=== PATIENT | female | born 1935 | race Asian ===

== ENCOUNTER 2018-11-21 21:40 | Observation (INO) | payer MEDICARE, OTHER ==
[~2018-11-21] VITALS: Ht 167.6 cm; Wt 55.7 kg
[~2018-11-21 21:40] MED LIST: AMLO-218 PO; BENZ-6 PO; CIPR500T4 PO; LISI-471 PO; [UNRECOGNIZED DRUG - CODE] PO
--- NOTE | 2018-11-21 22:07 | ERD ---
ER Documentation Chief Complaint Chief Complaint HPI 83-year-old woman brought in by his son for complaints of chest pain and shortne ss of breath shortly after eating dinner this evening. He states she felt dizzy and lightheaded but had no loss of consciousness and symptoms lasted for about 15 to 20 minutes. She has had no fevers or chills, no headache or blurry vision, no vomiting or diarrhea. Chest pain was substernal, nonradiating and nonexertional ROS All systems reviewed and are negative except as per history of present illness. Medications Home Meds Active Scripts Benzonatate* (Tessalon Perle*) 100 Mg Capsule, 200 MG PO TID PRN for COUGH, #30 CAP Prov:YOVANY NEWMAN [employer] DES[employer] 05/24/14 Ciprofloxacin Hcl* (Ciprofloxacin Hcl*) 500 Mg Tablet, 500 MG PO BID, #10 TAB Prov:YOVANY NEWMAN [employer] DES[employer] 05/24/14 Reported Medications Amlodipine Besylate* (Norvasc*) 10 Mg Tablet, 10 MG PO DAILY, TAB 05/22/14 Tenofovir Disoproxil Fumarate (Viread) 300 Mg Tablet, 300 MG PO DAILY, TAB 05/22/14 Lisinopril* (Lisinopril*) 20 Mg Tablet, 20 MG PO BID, TAB 05/22/14 Allergies Allergies: Coded Allergies: aspirin (Verified Allergy, Unknown, RASH,REDNESS,ITCHINESS, 11/16/12) Uncoded Allergies: seafood (Allergy, Unknown, 05/22/14) PMhx/Soc Hypertension, thrombocytopenia, hepatitis C, pulmonary hypertension, sick sinus syndrome status post pacemaker placement History of Surgery: Yes (hysterectomy, pacemaker placement, cholecystectomy, cataract sx) Anesthesia Reaction: No Hx Neurological Disorder: No Hx Respiratory Disorders: No Hx Cardiac Disorders: Yes (HTN) Hx Psychiatric Problems: No Hx Miscellaneous Medical Probl: Yes (liver cirrhosis) Hx Alcohol Use: No Hx Substance Use: No Hx Tobacco Use: No FmHx Family History: No diabetes Physical Exam Vitals Vital Signs Date Temp Pulse Resp B/P (MAP) Pulse Ox O2 O2 Flow FiO2 Time Delivery Rate 11/21/18 97.0 62 17 134/79 100 21:45 (97) Physical Exam Const: Elderly, chronically debilitated woman, appears dehydrated and afebrile Resp: Clear to auscultation bilaterally Cardio: Regular rate and rhythm, no murmurs Abd: Soft, non tender, non distended. No guarding no rigidity Skin: No petechiae or rashes, no hematomas, contusions, lacerations Ext: No cyanosis, or edema, calves are symmetrical, distal pulses equal bilateral Neur: Awake and alert x1, no focal deficits or facial asymmetry Result Diagram: 11/21/186 11/21/186 Results 24 hrs Laboratory Tests Test 11/21/18 22:26 White Blood Count 4.4 10^3/ul Red Blood Count 4.06 10^6/ul Hemoglobin 12.4 g/dl Hematocrit 36.5 % Mean Corpuscular Volume 89.9 fl Mean Corpuscular Hemoglobin 30.5 pg Mean Corpuscular Hemoglobin Concent 34.0 g/dl Red Cell Distribution Width 13.0 % Platelet Count 94 10^3/UL Mean Platelet Volume 11.1 fl Immature Granulocytes % 0.200 % Neutrophils % 60.5 % Lymphocytes % 22.5 % Monocytes % 10.5 % Eosinophils % 6.1 % Basophils % 0.2 % Nucleated Red Blood Cells % 0.0 /100WBC Immature Granulocytes # 0.010 10^3/ul Neutrophils # 2.7 10^3/ul Lymphocytes # 1.0 10^3/ul Monocytes # 0.5 10^3/ul Eosinophils # 0.3 10^3/ul Basophils # 0.0 10^3/ul Nucleated Red Blood Cells # 0.0 10^3/ul Urine Color COLORLESS Urine Clarity CLEAR Urine pH 6.0 Urine Specific [place] 1.003 Urine Ketones NEGATIVE mg/dL Urine Nitrite NEGATIVE mg/dL Urine Bilirubin NEGATIVE mg/dL Urine Urobilinogen NEGATIVE mg/dL Urine Leukocyte Esterase NEGATIVE Hank/ul Urine Hemoglobin NEGATIVE mg/dL Urine Glucose NEGATIVE mg/dL Urine Total Protein NEGATIVE mg/dl Sodium Level 141 mmol/L Potassium Level 3.7 mmol/L Chloride Level 108 mmol/L Carbon Dioxide Level 25 mmol/L Anion Gap 8 Blood Urea Nitrogen 18 mg/dl Creatinine 0.93 mg/dl Est Glomerular Filtrat Rate mL/min mL/min Glucose Level 116 mg/dl Calcium Level 9.2 mg/dl Total Bilirubin 0.6 mg/dl Direct Bilirubin 0.00 mg/dl Indirect Bilirubin 0.6 mg/dl Aspartate Amino Transf (AST/SGOT) 37 IU/L Alanine Aminotransferase (ALT/SGPT) 37 IU/L Alkaline Phosphatase 53 IU/L Troponin I < 0.012 ng/ml B-Type Natriuretic Peptide 344 PG/ML Total Protein 7.1 g/dl Albumin 3.9 g/dl Globulin 3.20 g/dl Albumin/Globulin Ratio 1.21 Lipase 259 U/L Current Medications Medications Dose Sig/Michelle Start Time Status Last (Trade) Ordered Route PRN Stop Time Admin Dose Reason Admin Sodium 500 ml @ Q1H STAT 11/21/18 DC Chloride 500 mls/hr IV 22:52 11/21/18 23:51 Ondansetron 4 mg ONCE STAT 11/21/18 DC HCl (Zofran IV 22:52 Inj) 11/21/18 22:54 Ketorolac 15 mg ONCE STAT 11/21/18 DC Tromethamine IV 22:52 (Toradol) 11/21/18 22:54 Clopidogrel 75 mg ONCE ONCE 11/22/18 DC Bisulfate PO 00:00 (plaVIX) 11/22/18 00:01 Procedures/MDM IV line was established patient was placed on senior account clerk rhythm strip revealed a sinus rhythm at about 70 bpm with upright P and T waves. Patient was afebrile EKG performed, read by me revealed an atrial paced rhythm at 65 bpm with PACs, left axis deviation, right ventricular conduction delay QRS duration 104 ms, no concerning ST elevations or depressions noted 1 view chest x-ray performed, read by me reveals a pacemaker in the left chest, no acute infiltrates, no pneumothorax. CT scan of the abdomen pelvis is also been ordered results are pending I will follow-up. I administered 500 cc normal saline IV, Toradol 15 mg IV, Zofran 4 mg IV, Plavix 75 mg p.o. for cardioprotective measures. CBC and electrolytes are normal, liver function tests were normal, troponin was negative, urinalysis was negative for infection. Patient is a poor historian but given her vague but concerning symptoms she will be admitted to telemetry for continued medical management and repeat troponins. She is without complaints of chest pain at this time Departure Diagnosis: Primary Impression: Chest pain Chest pain type: unspecified Qualified Codes: R07.9 - Chest pain, unspecified Additional Impression: Shortness of breath Condition: LUIS Rosa MD Nov 21, 2018 22:07
[2018-11-21] MEDS ORDERED: KETOROLAC 15 MG INJ IV STA (22:52)
[2018-11-21] MEDS ORDERED: ONDANSETRON 4 MG INJ IV STA (22:52)
[2018-11-21] MEDS ORDERED: SOD CHLORIDE 0.9% 500 ML IV STA (22:52)
[2018-11-22] MEDS ORDERED: CLOPIDOGREL 75 MG TAB PO ONE
[2018-11-22] MEDS ORDERED: NACL 0.9% 3 ML SYG IV SCH (05:00)
[2018-11-22] MEDS ORDERED: ONDANSETRON 4 MG INJ IV PRN (05:00)
[2018-11-22] MEDS ORDERED: ACETAMINOPHEN 325 MG TAB PO PRN (05:00)
[2018-11-22] MEDS ORDERED: NITROGLYCERIN (SL) 0.4 MG TAB SL PRN (05:00)
[2018-11-22] MEDS ORDERED: ALBUTEROL/IPRATROPIUM (NEB) 3 ML AMP HHN PRN (05:00)
--- NOTE | 2018-11-22 07:45 | HP ---
Date/Time of Note Date/Time of Note DATE: 11/22/18 TIME: 07:44 Assessment/Plan VTE Prophylaxis Pharmacological prophylaxis: heparin Lines/Catheters IV Catheter Type (from Nrsg): Saline Lock Assessment/Plan Assessment/Plan 1. Shortness of breath: Unclear etiology -Chest x-ray without acute findings. Patient is not hypoxic, now saturating 99% on room air -EKG shows PACs -Obtain 2D echo. will consider chest CT if symptoms recurs -PT eval especially given associated generalized weakness as well 2. Right-sided abdominal pain: Liver chemistries and lipase WNL -CT abdomen/pelvis cirrhosis with varices and portal hypertension 3. Hepatitis C cirrhosis with varices and portal hypertension -No acute issue -Continue med 4. Mild bicytopenia with leukopenia and thrombocytopenia: No sign of active bleed 5. Pacemaker: No acute issue 6. Hypertension: Continue home meds. Adjust as needed Result Diagram: 11/22/18 0517 11/22/18 0517 Results 24hrs Laboratory Tests Test 11/21/18 22:26 11/22/18 05:17 White Blood Count 4.4 #L 4.0 L Red Blood Count 4.06 L 4.35 Hemoglobin 12.4 13.2 Hematocrit 36.5 L 38.2 Mean Corpuscular Volume 89.9 87.8 Mean Corpuscular Hemoglobin 30.5 30.3 Mean Corpuscular Hemoglobin Concent 34.0 34.6 Red Cell Distribution Width 13.0 12.7 Platelet Count 94 L 93 L Mean Platelet Volume 11.1 H 11.5 H Immature Granulocytes % 0.200 0.300 Neutrophils % 60.5 62.8 Lymphocytes % 22.5 21.0 Monocytes % 10.5 9.3 Eosinophils % 6.1 5.8 Basophils % 0.2 0.8 Nucleated Red Blood Cells % 0.0 0.0 Immature Granulocytes # 0.010 0.010 Neutrophils # 2.7 2.5 Lymphocytes # 1.0 0.8 Monocytes # 0.5 0.4 Eosinophils # 0.3 0.2 Basophils # 0.0 0.0 Nucleated Red Blood Cells # 0.0 0.0 Urine Color COLORLESS Urine Clarity CLEAR Urine pH 6.0 Urine Specific [place] 1.003 Urine Ketones NEGATIVE Urine Nitrite NEGATIVE Urine Bilirubin NEGATIVE Urine Urobilinogen NEGATIVE Urine Leukocyte Esterase NEGATIVE Urine Hemoglobin NEGATIVE Urine Glucose NEGATIVE Urine Total Protein NEGATIVE Sodium Level 141 145 H Potassium Level 3.7 4.3 Chloride Level 108 112 H Carbon Dioxide Level 25 25 Anion Gap 8 8 Blood Urea Nitrogen 18 15 Creatinine 0.93 0.75 Est Glomerular Filtrat Rate mL/min Glucose Level 116 105 Calcium Level 9.2 9.1 Total Bilirubin 0.6 0.6 Direct Bilirubin 0.00 0.00 Indirect Bilirubin 0.6 0.6 Aspartate Amino Transf (AST/SGOT) 37 40 Alanine Aminotransferase (ALT/SGPT) 37 30 Alkaline Phosphatase 53 47 Troponin I < 0.012 < 0.012 B-Type Natriuretic Peptide 344 Total Protein 7.1 7.0 Albumin 3.9 4.0 Globulin 3.20 3.00 Albumin/Globulin Ratio 1.21 1.33 Lipase 259 Hemoglobin A1c 5.3 Magnesium Level 2.2 Creatine Kinase 69 Creatine Kinase Index 0.6 Creatinine Kinase MB (Mass) 0.38 Triglycerides Level 43 Cholesterol Level 125 LDL Cholesterol, Calculated 71 HDL Cholesterol 45 Cholesterol/HDL Ratio 2.7 Thyroid Stimulating Hormone (TSH) 7.620 H HPI/ROS Admit Date/Time Admit Date/Time Hx of Present Illness Patient is an 83-year-old female with a history of hypertension, pacemaker, hep C, cirrhosis, thrombocytopenia who presents the ER complaining of mainly shortness of breath. She also reported generalized weakness, feeling dizzy and right-sided abdominal pain. Symptoms started after she ate dinner. She also reported generalized weakness and feeling dizzy. Denied chest pain. When presented to ER, vitals were stable. Basic labs within acceptable range except platelet of 94 and WBC 4.4. EKG shows PACs. Chest x-ray without acute findings. CT abdomen/pelvis shows cirrhosis with varices and portal hypertension. PMH/Family/Social Past Medical History Past Surgical Hx: other (see HPI) Family History Significant Family History: no pertinent family hx Social History Alcohol Use: none Smoking Status: Never smoker Drug Use: none Exam Constitutional: No acute distress Head: normocephalic, atraumatic Eyes: EOMI, PERRL Respiratory: wheezing, decreased breath sounds Cardiovascular: regular rate and rhythm Gastrointestinal: soft Extremities: normal pulses Medications Current Medications IV Flush (NS 3 ml) 3 ml PER PROTOCOL IV ; Start 11/22/18 at 05:00 Ondansetron HCl (Zofran Inj) 4 mg Q6H PRN IV NAUSEA/VOMITING; Start 11/22/18 at 05:00 Nitroglycerin (Nitroglycerin (Sl Tab) 0.4 Mg) 1 tab Q5M PRN SL .CHEST PAIN; Start 11/22/18 at 05:00 Acetaminophen (Tylenol Tab) 650 mg Q6H PRN PO .PAIN 1-3 OR TEMP; Start 11/22/18 at 05:00 Albuterol/ Ipratropium (Duoneb) 3 ml Q2H RESP THERAPY PRN HHN SHORTNESS OF BREATH; Start 11/22/18 at 05:00 Amlodipine Besylate (Norvasc) 10 mg DAILY PO ; Start 11/22/18 at 09:00 Lisinopril (Zestril) 20 mg BID PO ; Start 11/22/18 at 09:00 Tenofovir Disoproxil Fumarate (Viread) 300 mg DAILY PO ; Start 11/22/18 at 09:00 Coded Allergies: aspirin (Verified Allergy, Unknown, RASH,REDNESS,ITCHINESS, 11/22/18) Uncoded Allergies: seafood (Allergy, Unknown, 05/22/14) Social History Smoking Status: Never smoker Exam/Review of Systems Vital Signs Vitals Vital Signs Date Temp Pulse Resp B/P (MAP) Pulse Ox O2 O2 Flow FiO2 Time Delivery Rate 11/22/18 60 18 145/60 99 Room Air 06:28 (88) 11/22/18 97.0 00:00 11/21/18 2.0 22:00 DEVANG MCDONALD MD Nov 22, 2018 07:45
[2018-11-22] MEDS ORDERED: METO-335 PO (09:19)
[2018-11-22] MEDS: AMLODIPINE 10 MG TAB PO SCH (09:39)
[2018-11-22] MEDS: TENOFOVIR 300 MG TAB PO SCH (09:39)
[2018-11-22] MEDS: LISINOPRIL 20 MG TAB PO SCH ×3 (09:40→20:45)
--- NOTE | 2018-11-22 10:01 | PN ---
Date/Time of Note Date/Time of Note DATE: 11/22/18 TIME: 09:55 Assessment/Plan VTE Prophylaxis SCD contraindicated: low risk/ambulating Pharmacological prophylaxis: heparin Lines/Catheters IV Catheter Type (from Nrsg): Saline Lock Assessment/Plan Problems: (1) Chest pain Status: Acute Comment: Troponins negative so far. It is unclear why she is complaining of weakness but in the historical records at sites pulmonary hypertension although none of the echocardiograms identify that specifically. Patient also denies any history of asthma or lung disease although it certainly possible she could have some hepatopulmonary syndrome on the basis of her cirrhosis. Continue evaluati on and possible adjustment of medications as we move forward Qualifiers: Chest pain type: unspecified Qualified Codes: R07.9 - Chest pain, unspecified (2) Shortness of breath Status: Acute Comment: Stable at this time, no evidence on exam or by history to suggest COPD or asthma syndrome (3) Hepatitis C, chronic Status: Chronic Comment: Noted. Please see outpatient medications Qualifiers: Hepatic coma status: without hepatic coma Qualified Codes: B18.2 - Chronic viral hepatitis C (4) Cirrhosis of liver Status: Chronic Comment: Secondary to hepatitis C. Consideration of portal hypertension treatment with metoprolol. Would not use nadolol given the question of lung disease Qualifiers: Hepatic cirrhosis type: other cirrhosis Qualified Codes: K74.69 - Other cirrhosis of liver (5) Portal venous hypertension Status: Chronic Comment: Noted, as above (6) Thrombocytopenia Status: Chronic Comment: Noted (7) History of sick sinus syndrome Status: Chronic Comment: Treated with pacemaker (8) Pacemaker Status: Chronic Comment: Operational (9) Hypertension Status: Chronic Comment: Adequate control Qualifiers: Hypertension type: essential hypertension Qualified Codes: I10 - Essential (primary) hypertension (10) Grade I diastolic dysfunction Status: Chronic Comment: Control blood pressure and pulse (11) Abnormal finding on thyroid function test Status: Acute Comment: Recheck labs in the morning (12) History of cholecystectomy Status: Chronic Comment: Noted (13) History of hysterectomy Status: Chronic Comment: Noted (14) H/O cataract extraction Comment: Noted Qualifiers: Laterality: unspecified laterality Qualified Codes: Z98.49 - Cataract extraction status, unspecified eye (15) Hx of salpingo-oophorectomy, bilateral Status: Chronic Comment: Noted Result Diagram: 11/22/18 0517 11/22/18 05 Results 24hrs Laboratory Tests Test 11/21/18 22:26 11/22/18 05:17 White Blood Count 4.4 #L 4.0 L Red Blood Count 4.06 L 4.35 Hemoglobin 12.4 13.2 Hematocrit 36.5 L 38.2 Mean Corpuscular Volume 89.9 87.8 Mean Corpuscular Hemoglobin 30.5 30.3 Mean Corpuscular Hemoglobin Concent 34.0 34.6 Red Cell Distribution Width 13.0 12.7 Platelet Count 94 L 93 L Mean Platelet Volume 11.1 H 11.5 H Immature Granulocytes % 0.200 0.300 Neutrophils % 60.5 62.8 Lymphocytes % 22.5 21.0 Monocytes % 10.5 9.3 Eosinophils % 6.1 5.8 Basophils % 0.2 0.8 Nucleated Red Blood Cells % 0.0 0.0 Immature Granulocytes # 0.010 0.010 Neutrophils # 2.7 2.5 Lymphocytes # 1.0 0.8 Monocytes # 0.5 0.4 Eosinophils # 0.3 0.2 Basophils # 0.0 0.0 Nucleated Red Blood Cells # 0.0 0.0 Urine Color COLORLESS Urine Clarity CLEAR Urine pH 6.0 Urine Specific [place] 1.003 Urine Ketones NEGATIVE Urine Nitrite NEGATIVE Urine Bilirubin NEGATIVE Urine Urobilinogen NEGATIVE Urine Leukocyte Esterase NEGATIVE Urine Hemoglobin NEGATIVE Urine Glucose NEGATIVE Urine Total Protein NEGATIVE Sodium Level 141 145 H Potassium Level 3.7 4.3 Chloride Level 108 112 H Carbon Dioxide Level 25 25 Anion Gap 8 8 Blood Urea Nitrogen 18 15 Creatinine 0.93 0.75 Est Glomerular Filtrat Rate mL/min Glucose Level 116 105 Calcium Level 9.2 9.1 Total Bilirubin 0.6 0.6 Direct Bilirubin 0.00 0.00 Indirect Bilirubin 0.6 0.6 Aspartate Amino Transf (AST/SGOT) 37 40 Alanine Aminotransferase (ALT/SGPT) 37 30 Alkaline Phosphatase 53 47 Troponin I < 0.012 < 0.012 B-Type Natriuretic Peptide 344 Total Protein 7.1 7.0 Albumin 3.9 4.0 Globulin 3.20 3.00 Albumin/Globulin Ratio 1.21 1.33 Lipase 259 Hemoglobin A1c 5.3 Magnesium Level 2.2 Creatine Kinase 69 Creatine Kinase Index 0.6 Creatinine Kinase MB (Mass) 0.38 Triglycerides Level 43 Cholesterol Level 125 LDL Cholesterol, Calculated 71 HDL Cholesterol 45 Cholesterol/HDL Ratio 2.7 Thyroid Stimulating Hormone (TSH) 7.620 H Subjective 24 Hr Interval Summary Free Text/Dictation Patient resting in ER bed 12 on a gurney. At this time she complains of extreme weakness. She denies any shortness of breath, she denies chest pain, she denies any abdominal pain. Constitutional: no complaints (Denies fevers chills or sweats) Respiratory: no complaints Cardiovascular: no complaints Gastrointestinal: no complaints (Denies melena or bright red blood per rectum) Genitourinary: no complaints Neurologic: no complaints Exam/Review of Systems Exam Vitals Vital Signs Date Temp Pulse Resp B/P (MAP) Pulse Ox O2 O2 Flow FiO2 Time Delivery Rate 11/22/18 149/79 09:38 (102) 11/22/18 60 18 99 Room Air 08:35 11/22/18 97.0 00:00 11/21/18 2.0 22:00 Exam Pleasant [place] female lying in bed Constitutional: alert, oriented Neck: supple, non-tender Respiratory: clear to auscultation, normal air movement Cardiovascular: regular rate and rhythm, nl pulses Gastrointestinal: soft, nl liver, spleen, non-tender Results Results 24hrs Laboratory Tests Test 11/21/18 22:26 11/22/18 05:17 White Blood Count 4.4 #L 4.0 L Red Blood Count 4.06 L 4.35 Hemoglobin 12.4 13.2 Hematocrit 36.5 L 38.2 Mean Corpuscular Volume 89.9 87.8 Mean Corpuscular Hemoglobin 30.5 30.3 Mean Corpuscular Hemoglobin Concent 34.0 34.6 Red Cell Distribution Width 13.0 12.7 Platelet Count 94 L 93 L Mean Platelet Volume 11.1 H 11.5 H Immature Granulocytes % 0.200 0.300 Neutrophils % 60.5 62.8 Lymphocytes % 22.5 21.0 Monocytes % 10.5 9.3 Eosinophils % 6.1 5.8 Basophils % 0.2 0.8 Nucleated Red Blood Cells % 0.0 0.0 Immature Granulocytes # 0.010 0.010 Neutrophils # 2.7 2.5 Lymphocytes # 1.0 0.8 Monocytes # 0.5 0.4 Eosinophils # 0.3 0.2 Basophils # 0.0 0.0 Nucleated Red Blood Cells # 0.0 0.0 Urine Color COLORLESS Urine Clarity CLEAR Urine pH 6.0 Urine Specific [place] 1.003 Urine Ketones NEGATIVE Urine Nitrite NEGATIVE Urine Bilirubin NEGATIVE Urine Urobilinogen NEGATIVE Urine Leukocyte Esterase NEGATIVE Urine Hemoglobin NEGATIVE Urine Glucose NEGATIVE Urine Total Protein NEGATIVE Sodium Level 141 145 H Potassium Level 3.7 4.3 Chloride Level 108 112 H Carbon Dioxide Level 25 25 Anion Gap 8 8 Blood Urea Nitrogen 18 15 Creatinine 0.93 0.75 Est Glomerular Filtrat Rate mL/min Glucose Level 116 105 Calcium Level 9.2 9.1 Total Bilirubin 0.6 0.6 Direct Bilirubin 0.00 0.00 Indirect Bilirubin 0.6 0.6 Aspartate Amino Transf (AST/SGOT) 37 40 Alanine Aminotransferase (ALT/SGPT) 37 30 Alkaline Phosphatase 53 47 Troponin I < 0.012 < 0.012 B-Type Natriuretic Peptide 344 Total Protein 7.1 7.0 Albumin 3.9 4.0 Globulin 3.20 3.00 Albumin/Globulin Ratio 1.21 1.33 Lipase 259 Hemoglobin A1c 5.3 Magnesium Level 2.2 Creatine Kinase 69 Creatine Kinase Index 0.6 Creatinine Kinase MB (Mass) 0.38 Triglycerides Level 43 Cholesterol Level 125 LDL Cholesterol, Calculated 71 HDL Cholesterol 45 Cholesterol/HDL Ratio 2.7 Thyroid Stimulating Hormone (TSH) 7.620 H Medications Medication Current Medications IV Flush (NS 3 ml) 3 ml PER PROTOCOL IV ; Start 11/22/18 at 05:00 Ondansetron HCl (Zofran Inj) 4 mg Q6H PRN IV NAUSEA/VOMITING; Start 11/22/18 at 05:00 Nitroglycerin (Nitroglycerin (Sl Tab) 0.4 Mg) 1 tab Q5M PRN SL .CHEST PAIN; Start 11/22/18 at 05:00 Acetaminophen (Tylenol Tab) 650 mg Q6H PRN PO .PAIN 1-3 OR TEMP; Start 11/22/18 at 05:00 Albuterol/ Ipratropium (Duoneb) 3 ml Q2H RESP THERAPY PRN HHN SHORTNESS OF BREATH; Start 11/22/18 at 05:00 Amlodipine Besylate (Norvasc) 10 mg DAILY PO Last administered on 11/22/18at 09:39; Admin Dose 10 MG; Start 11/22/18 at 09:00 Lisinopril (Zestril) 20 mg BID PO Last administered on 11/22/18at 09:40; Admin Dose 20 MG; Start 11/22/18 at 09:00 Tenofovir Disoproxil Fumarate (Viread) 300 mg DAILY PO Last administered on 11/22/18at 09:39; Admin Dose 300 MG; Start 11/22/18 at 09:00 SALVADOR PUGH MD Nov 22, 2018 10:01
--- NOTE | 2018-11-22 12:41 | CONDCODE ---
Medicare Criteria-> INP to OBS Patient still in hospital: Yes SI/IS Criteria met: No Attending MD agrees w/change: Yes Order entered in Pt. record: Yes Pt. does not meet Inp Criteria: Yes Medicare Inp->Obs Criteria met: Yes External PA Confirmation from External PA: No I personally scribed for SALVADOR PUGH MD ([email or web address]) on 11/22/18 at 12:41. Electronically submitted by Keyanna Landeros ([email or web address]). SALVADOR PUGH MD Nov 22, 2018 12:41
[2018-11-22 16:30] VITALS: BP 139/66; PULSE 67; RESP 18; Ht 167.6 cm; Wt 55.7 kg
[2018-11-22 19:22] VITALS: BP 120/63; PULSE 60; RESP 18
[2018-11-23 00:10] VITALS: BP 117/61; PULSE 62; RESP 19
[2018-11-23 04:07] VITALS: BP 123/58; PULSE 61; RESP 18
[2018-11-23 07:14] VITALS: BP 125/55; PULSE 62; RESP 18
[2018-11-23] MEDS: AMLODIPINE 10 MG TAB PO SCH (11:26)
[2018-11-23] MEDS: LISINOPRIL 20 MG TAB PO SCH (11:26)
[2018-11-23] MEDS: TENOFOVIR 300 MG TAB PO SCH (11:26)
[2018-11-23 12:10] VITALS: BP 110/64; PULSE 61; RESP 18
--- NOTE | 2018-11-23 12:44 | DS ---
Date/Time of Note Date/Time of Note DATE: 11/23/18 TIME: 12:41 Discharge Summary Admission/Discharge Info Admit Date/Time Nov 21, 2018 at 23:56 Discharge Date/Time Discharge Diagnosis 1. Shortness of breath: Resolved -etiology unclear, ACS ruled out, mild obstructive airway disease? 2. 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 Mild bicytopenia with leukopenia and thrombocytopenia: No sign of active bleed 5. Pacemaker: No acute issue 6. Hypertension: Continue home meds. . Patient Condition: Stable Consults Cardiology: [place] . Hospital Course 83-year-old female who had presented to emergency room with shortness of breath right-sided abdominal pain and was admitted for further work-up. Lab values were consistent with leukopenia and thrombocytopenia and CT of the abdomen and pelvis showed cirrhosis with varices and portal hypertension but no inflammation, mass or lymphadenopathy. Chest x-ray showed no acute cardiopulmonary disease. Patient does have a chronic pacemaker. She ruled out for an acute coronary syndrome with 3- cardiac enzymes, and a screening TSH was elevated but her free T4 was within normal limits. Urinalysis was negative for urinary tract infection. Patient does have a history of chronic hepatitis C which is likely the cause of her cirrhosis. At this time she is doing much better and desires to be discharged. Her 2D echocardiogram is pending, once this is reviewed, and patient has been cleared by cardiology she will be discharged in stable condition. . Home Meds Reported Medications Metoprolol Succinate* (Toprol XL*) 25 Mg Tab.sr.24h, 25 MG PO DAILY, #30 TAB 11/22/18 Amlodipine Besylate* (Norvasc*) 10 Mg Tablet, 10 MG PO DAILY, TAB 05/22/14 Tenofovir Disoproxil Fumarate (Viread) 300 Mg Tablet, 300 MG PO DAILY, TAB 05/22/14 Lisinopril* (Lisinopril*) 20 Mg Tablet, 20 MG PO BID, TAB 05/22/14 Discontinued Scripts Benzonatate* (Tessalon Perle*) 100 Mg Capsule, 200 MG PO TID PRN for COUGH, #30 CAP Prov:YOVANY NEWMAN PRACTICAL NURSE 05/24/14 Ciprofloxacin Hcl* (Ciprofloxacin Hcl*) 500 Mg Tablet, 500 MG PO BID, #10 TAB Prov:YOVANY NEWMAN PRACTICAL NURSE 05/24/14 Follow-up Plan See Chart for complete and accurate Dc medication list Followup with your primary doctor within the next 1-2 weeks. If you don't have one please let someone know, we can give you resources that may help you pick one. You may call Dr Claude Degroot's office. he's accepting new patients Name, Degree: Claude Degroot MD Specialty: Internal Medicine Comments: Office Address: [address] [place] [address] [place], [place] [id number] Office Office You may also call your insurance company to assign one to you. Review your medication list with your nurse before leaving and if you need new prescriptions please let your nurse know. I may have made changes to your home medications or given you new prescriptions, please let your primary doctor know as well. Stay compliant with your medications and report any side effects to your PCP or pharmacist. Return to the ER if you have any concerns and cannot reach your doctors or call your insurance company, they usually have a nurse that can help you. Primary Care Provider Not On Staff Doctor Time spent on discharge: > 30 minutes Pending Labs Laboratory Tests Test 11/23/18 05:52 White Blood Count 4.1 10^3/ul (4.8-10.8) Red Blood Count 4.07 10^6/ul (4.20-5.40) Hemoglobin 12.4 g/dl (12.0-16.0) Hematocrit 36.3 % (37.0-47.0) Mean Corpuscular Volume 89.2 fl (82.0-101.0) Mean Corpuscular Hemoglobin 30.5 pg (29.0-33.0) Mean Corpuscular Hemoglobin Concent 34.2 g/dl (32.0-37.0) Red Cell Distribution Width 13.0 % (11.5-14.5) Platelet Count 91 10^3/UL (140-415) Mean Platelet Volume 11.4 fl (7.4-10.4) Immature Granulocytes % 0.200 % (0.001-0.429) Neutrophils % 64.8 % (39.0-77.0) Lymphocytes % 20.3 % (15.0-51.0) Monocytes % 10.8 % (0.0-11.0) Eosinophils % 3.7 % (0.0-7.0) Basophils % 0.2 % (0.0-2.0) Nucleated Red Blood Cells % 0.0 /100WBC (0.0-0.0) Immature Granulocytes # 0.010 10^3/ul (0.0-0.031) Neutrophils # 2.6 10^3/ul (1.6-7.5) Lymphocytes # 0.8 10^3/ul (0.8-2.9) Monocytes # 0.4 10^3/ul (0.3-0.9) Eosinophils # 0.2 10^3/ul (0.0-0.5) Basophils # 0.0 10^3/ul (0.0-0.1) Nucleated Red Blood Cells # 0.0 10^3/ul (0.0-0.0) Sodium Level 140 mmol/L (135-144) Potassium Level 3.8 mmol/L (3.5-5.1) Chloride Level 105 mmol/L (97-110) Carbon Dioxide Level 26 mmol/L (21-31) Anion Gap 9 (5-13) Blood Urea Nitrogen 25 mg/dl (7-20) Creatinine 0.94 mg/dl (0.44-1.00) Est Glomerular Filtrat Rate mL/min mL/min (>60) Glucose Level 116 mg/dl (70-220) Calcium Level 8.9 mg/dl (8.4-10.2) Phosphorus Level 3.9 mg/dl (2.5-4.9) Magnesium Level 2.4 mg/dl (1.7-2.5) Thyroid Stimulating Hormone (TSH) 5.110 MIU/L (0.465-4.680) Free Thyroxine 1.30 ng/dl (0.85-1.93) Free Triiodothyronine (T3) pg/mL 3.51 pg/ml (2.77-5.27) LE DE DIOS Nov 23, 2018 12:44
[2018-11-23] MEDS ORDERED: ALBU90AE INHALATION (12:46)
--- NOTE | 2018-11-23 12:47 | PDOCDIS ---
Discharge Instructions DIAGNOSIS Discharge Diagnosis 1. Shortness of breath: Resolved -etiology unclear, ACS ruled out, mild obstructive airway disease? 2. 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 Mild bicytopenia with leukopenia and thrombocytopenia: No sign of active bleed 5. Pacemaker: No acute issue 6. Hypertension: Continue home meds. . CONDITION [id number] Patient Condition: [id number] Stable HOME CARE INSTRUCTIONS: [id number] Diet Instructions: [id number] Low Fat /Cholesterol FOLLOW UP/APPOINTMENTS Follow-up Plan See Chart for complete and accurate Dc medication list Followup with your primary doctor within the next 1-2 weeks. If you don't have one please let someone know, we can give you resources that may help you pick one. You may call Dr Claude Degroot's office. he's accepting new patients Name, Degree: Claude Degroot MD Specialty: Internal Medicine Comments: Office Address: [address] [place], [place] [phone] Office Office You may also call your insurance company to assign one to you. Review your medication list with your nurse before leaving and if you need new prescriptions please let your nurse know. I may have made changes to your home medications or given you new prescriptions, please let your primary doctor know as well. Stay compliant with your medications and report any side effects to your PCP or pharmacist. Return to the ER if you have any concerns and cannot reach your doctors or call your insurance company, they usually have a nurse that can help you. LE DE DIOS Nov 23, 2018 12:47
[2018-11-23] MEDS ORDERED: PROPRANOLOL 10 MG TAB PO SCH (13:00)
--- NOTE | 2018-11-23 14:18 | RADRPT ---
Echocardiogram Report Patient Name: ALEJANDRO GARCÍAPatient ID: [id number] : [id number] (83y 2m)Study Date: 11/22/2018 1:36:24 PM Gender: FAccession #: [id number] Tech: MT Location: [facility] Ref.Physician: DEVANG MCDONALD Height(Cm): 168 BSA: 1.66Weight(Kg): 59 Quality: AdequateOrder Physician: DEVANG MCDONALD Account #: Procedures: Echocardiographic Report: Transthoracic echocardiogram with complete 2D, M-Mode, and doppler examination. Indications: Chest Pain. Measurements: 2D/M Mode Doppler Measurement Value Normal Range Measurement Value Normal Range LVIDd 2D 3.8 [ 3.8 - 5.2 ] cm AV Peak Tarik 1.2 [ 100.0 - 170.0 ] cm/se c LVIDs 2D 2.2 [ 2.2 - 3.5 ] cm AV Peak PG 6.0 [ 2.0 - 9.0 ] mmHg LVPWd 2D 1.2 [ 0.6 - 0.9 ] cm AI Peak PG 19.0 mmHg IVSd 2D 1.3 [ 0.6 - 0.9 ] cm AI Peak Tarik 2.2 cm/sec AoR Diam 2D 3.2 [ 2.3 - 3.1 ] cm AI PHT 632.0 msec EDV 2D 60.8 [ 46.0 - 106.0 ] ml LVOT Peak Tarik 1.0 [ 70.0 - 110.0 ] cm/sec ESV 2D 15.5 [ 14.0 - 42.0 ] ml LVOT Peak PG 4.0 [ 2.0 - 6.0 ] mmHg EF 2D 74.5 [ 54.0 - 74.0 ] percent MV E Peak Tarik 0.5 [ 60.0 - 130.0 ] cm/sec LA Dimen 2D 3.2 [ 2.7 - 3.8 ] cm MV A Peak Tarik 0.7 [ 100.0 - 120.0 ] cm/se c MV E/A 0.7 [ 0.8 - 1.5 ] ratio MV PHT 81.0 [ 20.0 - 100.0 ] msec MV Decel Time 169 [ 104 - 258 ] msec MV Decel [place] 2 Lat E` Tarik 0.1 [ 10.0 - 15.0 ] cm/sec Lateral E/E` 9.3 [ 1.0 - 2.0 ] ratio Med E` Tarik 0.1 cm/sec MV E/A 0.7 [ 0.8 - 1.5 ] ratio MVA PHT 2.7 [ 2.0 - 4.0 ] cm2 TR Peak Tarik 2.4 [ 100.0 - 280.0 ] cm/se c TR Peak PG 22.0 mmHg PV Peak Tarik 1.0 [ 40.0 - 80.0 ] cm/sec PV Peak PG 4.0 mmHg RVSP 29.0 [ 10.0 - 36.0 ] mmHg RA Pressure 3.0 mmHg Findings: Left Ventricle: Normal left ventricular systolic function. Normal left ventricular cavity size. Mild concentric left ventricular hypertrophy. Ejection fraction is visually estimated at 65 %. Tissue Doppler/Mitral Doppler indices are consistent with impaired relaxation (Stage I diastolic dysfunction). Right Ventricle: Normal right ventricular size. Normal right ventricular systolic function. Left Atrium: There is mild enlargement of left atrium. Right Atrium: The right atrium is normal in size. Mitral Valve: Mitral valve leaflets appear mildly thickened. Mild mitral annular calcification. Trace mitral regurgitation. Aortic Valve: No hemodynamically significant aortic stenosis by doppler. Aortic cusps appear mildly calcified. Mild to moderate aortic valve regurgitation. Tricuspid Valve: Normal appearance and function of the tricuspid valve with trace physiologic regurgitation. Normal right ventricular systolic pressure. Pulmonic Valve: Normal pulmonic valve appearance. Pericardium: Normal pericardium with no significant pericardial effusion. Aorta: Normal aortic root. IVC: Normal size and normal respiratory collapse consistent with normal right atrial pressure. Conclusions: Normal left ventricular systolic function. Normal left ventricular cavity size. Mild concentric left ventricular hypertrophy. Ejection fraction is visually estimated at 65 %. Tissue Doppler/Mitral Doppler indices are consistent with impaired relaxation (Stage I diastolic dysfunction). There is mild enlargement of left atrium. Mitral valve leaflets appear mildly thickened. Mild mitral annular calcification. Trace mitral regurgitation. Normal appearance and function of the tricuspid valve with trace physiologic regurgitation. Normal right ventricular systolic pressure. No hemodynamically significant aortic stenosis by doppler. Aortic cusps appear mildly calcified. Mild to moderate aortic valve regurgitation. Normal size and normal respiratory collapse consistent with normal right atrial pressure. Electronically Signed By: Salvador Briscoe 2018-11-23 14:17:41 PDT
--- NOTE | 2018-11-23 14:36 | CONS ---
Assessment/Plan Assessment/Plan Hospital Course (Demo Recall) 1. Dyspnea now possible reactive airway disease has resolved now 2. Sick sinus syndrome status post permanent pacemaker currently appears to be functioning normally on the rhythm 3. Hypertension coronary control 4. History of liver cirrhosis and hepatitis C 5. Aspirin allergy recommendations: Continue with the current cardiac care for now. We will schedule the patient to follow-up with me as an outpatient to have the pacemaker interrogated. Otherwise stable from discharge from the cardiac standpoint. Thank you for this referral. We will continue to follow along with you HALINA MARSH MD FAC Consultation Date/Type/Reason Admit Date/Time Date of Consultation: Nov 23, 2018 Type of Consult Cardiology Reason for Consultation sob. sick sinus Requesting Provider: LE DE DIOS Date/Time of Note DATE: 11/23/18 TIME: 14:32 Hx of Present Illness Interventional cardiology consultation note Chief complaint: Shortness of breath. Dizziness Reason for consult: Sick sinus history of pacemaker dyspnea History of present illness: Thank you for this referral. History was obtained from the patient from review of the old chart. Patient also very well-known to me from office visits. However lately she has been lost to follow-up This is a very pleasant 83-year-old female with history of sick sinus syndrome sternal post permanent pacemaker by me history of hepatitis C cirrhosis who came to emergency room complaining of shortness of breath. No chest pain or pressure no palpitation. She Symptoms have completely resolved and she wants to go home now. PAST MEDICAL HISTORY 1. Sick sinus syndrome, status post pacemaker. 2. Hypertension. 3. Hepatitis C. 4. Pulmonary hypertension. SURGICAL HISTORY 1. Pacemaker placement. [employer] pacemaker done by me previously 2. Abdominal hysterectomy. Allergies: Aspirin and seafood Medications were reviewed as per medical reconciliation sheet Family history: No reported history of early coronary artery disease Social history: Does not smoke or drink Review of system: Patient denies all others except for above-mentioned Past Medical History Home Meds Reported Medications Metoprolol Succinate* (Toprol XL*) 25 Mg Tab.sr.24h, 25 MG PO DAILY, #30 TAB 11/22/18 Amlodipine Besylate* (Norvasc*) 10 Mg Tablet, 10 MG PO DAILY, TAB 05/22/14 Tenofovir Disoproxil Fumarate (Viread) 300 Mg Tablet, 300 MG PO DAILY, TAB 05/22/14 Lisinopril* (Lisinopril*) 20 Mg Tablet, 20 MG PO BID, TAB 05/22/14 Discontinued Scripts Benzonatate* (Tessalon Perle*) 100 Mg Capsule, 200 MG PO TID PRN for COUGH, #30 CAP Prov:ELLARYOVANY WRINGER OPERATOR 05/24/14 Ciprofloxacin Hcl* (Ciprofloxacin Hcl*) 500 Mg Tablet, 500 MG PO BID, #10 TAB Prov:ARISYOVANY PRASAD WRINGER OPERATOR 05/24/14 Medications Current Medications IV Flush (NS 3 ml) 3 ml PER PROTOCOL IV ; Start 11/22/18 at 05:00 Ondansetron HCl (Zofran Inj) 4 mg Q6H PRN IV NAUSEA/VOMITING; Start 11/22/18 at 05:00 Nitroglycerin (Nitroglycerin (Sl Tab) 0.4 Mg) 1 tab Q5M PRN SL .CHEST PAIN; Start 11/22/18 at 05:00 Acetaminophen (Tylenol Tab) 650 mg Q6H PRN PO .PAIN 1-3 OR TEMP; Start 11/22/18 at 05:00 Albuterol/ Ipratropium (Duoneb) 3 ml Q2H RESP THERAPY PRN HHN SHORTNESS OF BREATH; Start 11/22/18 at 05:00 Amlodipine Besylate (Norvasc) 10 mg DAILY PO Last administered on 11/23/18at 11:26; Admin Dose 10 MG; Start 11/22/18 at 09:00 Lisinopril (Zestril) 20 mg BID PO Last administered on 11/23/18at 11:26; Admin Dose 20 MG; Start 11/22/18 at 09:00 Tenofovir Disoproxil Fumarate (Viread) 300 mg DAILY PO Last administered on 11/23/18 11:26; Admin Dose 300 MG; Start 11/22/18 at 09:00 Propranolol HCl (Inderal) 10 mg BID PO ; Start 11/23/18 at 13:00 Allergies: Coded Allergies: aspirin (Verified Allergy, Unknown, RASH,REDNESS,ITCHINESS, 11/22/18) Uncoded Allergies: seafood (Allergy, Unknown, 05/22/14) Social History Smoking Status: Never smoker Exam/Review of Systems Vital Signs Vitals Vital Signs Date Temp Pulse Resp B/P (MAP) Pulse Ox O2 O2 Flow FiO2 Time Delivery Rate 11/23/18 98.0 61 18 110/64 98 12:10 (79) 11/23/18 Room Air 04:07 11/21/18 2.0 22:00 Intake and Output 11/22/18 11/22/18 11/23/18 1515:00 23:00 07:00 IntakeIntake Total 400 ml BalanceBalance 400 ml Exam Exam General: no acute distress HEENT: NC/AT. pupils are equal. round. NECK: NO JVD. no stridor. CV: RRR. systolic murmur; no gallop or rubs. PULM: no wheezing or rhonchi. GI: SOFT, NT, ND, no rebound or guarding Extremity: trace B/L LE edema. no clubbing. neuro: awake and alert, OX3. Psych: calm and pleasant rectal: deferred Chest: s/p left-sided permanent pacemaker EKG was personally reviewed showed atrial paced rhythm with frequent PAC. Chest x-ray showed No evidence of acute cardiopulmonary disease. Aortic atherosclerosis. Cardiac pacemaker. No pneumoperitoneum. Labs Result Diagram: 11/23/18 0552 11/23/18 0552 Results 24hrs Laboratory Tests Test 11/23/18 05:52 White Blood Count 4.1 L Red Blood Count 4.07 L Hemoglobin 12.4 Hematocrit 36.3 L Mean Corpuscular Volume 89.2 Mean Corpuscular Hemoglobin 30.5 Mean Corpuscular Hemoglobin Concent 34.2 Red Cell Distribution Width 13.0 Platelet Count 91 L Mean Platelet Volume 11.4 H Immature Granulocytes % 0.200 Neutrophils % 64.8 Lymphocytes % 20.3 Monocytes % 10.8 Eosinophils % 3.7 Basophils % 0.2 Nucleated Red Blood Cells % 0.0 Immature Granulocytes # 0.010 Neutrophils # 2.6 Lymphocytes # 0.8 Monocytes # 0.4 Eosinophils # 0.2 Basophils # 0.0 Nucleated Red Blood Cells # 0.0 Sodium Level 140 Potassium Level 3.8 Chloride Level 105 Carbon Dioxide Level 26 Anion Gap 9 Blood Urea Nitrogen 25 H Creatinine 0.94 Est Glomerular Filtrat Rate mL/min Glucose Level 116 Calcium Level 8.9 Phosphorus Level 3.9 Magnesium Level 2.4 Thyroid Stimulating Hormone (TSH) 5.110 H Free Thyroxine 1.30 Free Triiodothyronine (T3) pg/mL 3.51 Medications Medications Current Medications IV Flush (NS 3 ml) 3 ml PER PROTOCOL IV ; Start 11/22/18 at 05:00 Ondansetron HCl (Zofran Inj) 4 mg Q6H PRN IV NAUSEA/VOMITING; Start 11/22/18 at 05:00 Nitroglycerin (Nitroglycerin (Sl Tab) 0.4 Mg) 1 tab Q5M PRN SL .CHEST PAIN; Start 11/22/18 at 05:00 Acetaminophen (Tylenol Tab) 650 mg Q6H PRN PO .PAIN 1-3 OR TEMP; Start 11/22/18 at 05:00 Albuterol/ Ipratropium (Duoneb) 3 ml Q2H RESP THERAPY PRN HHN SHORTNESS OF BREATH; Start 11/22/18 at 05:00 Amlodipine Besylate (Norvasc) 10 mg DAILY PO Last administered on 11/23/18 11:26; Admin Dose 10 MG; Start 11/22/18 at 09:00 Lisinopril (Zestril) 20 mg BID PO Last administered on 11/23/18at 11:26; Admin Dose 20 MG; Start 11/22/18 at 09:00 Tenofovir Disoproxil Fumarate (Viread) 300 mg DAILY PO Last administered on 11/23/18 11:26; Admin Dose 300 MG; Start 11/22/18 at 09:00 Propranolol HCl (Inderal) 10 mg BID PO ; Start 11/23/18 at 13:00 HALINA MARSH MD Nov 23, 2018 14:36
--- NOTE | 2018-11-23 15:34 | PDOCDIS ---
Discharge Instructions DIAGNOSIS Discharge Diagnosis 1. Shortness of breath: Resolved -etiology unclear, ACS ruled out, mild obstructive airway disease? 2. 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 Mild bicytopenia with leukopenia and thrombocytopenia: No sign of active bleed 5. Pacemaker: No acute issue 6. Hypertension: Continue home meds. . CONDITION [id number] Patient Condition: [id number] Stable HOME CARE INSTRUCTIONS: [id number] Diet Instructions: [id number] Low Fat /Cholesterol FOLLOW UP/APPOINTMENTS Follow-up Plan See Chart for complete and accurate Dc medication list Followup with your primary doctor within the next 1-2 weeks. If you don't have one please let someone know, we can give you resources that may help you pick one. You may call Dr Claude Degroot's office. he's accepting new patients Name, Degree: Claude Degroot MD Specialty: Internal Medicine Comments: Office Address: [address] [place], [place] [id number] Office Office You may also call your insurance company to assign one to you. Review your medication list with your nurse before leaving and if you need new prescriptions please let your nurse know. I may have made changes to your home medications or given you new prescriptions, please let your primary doctor know as well. Stay compliant with your medications and report any side effects to your PCP or pharmacist. Return to the ER if you have any concerns and cannot reach your doctors or call your insurance company, they usually have a nurse that can help you. OTHER ORDERS: Other Orders: Follow-up with your materials planner/production planner, Dr. Briscoe, on December 02 at 1 PM. LE DE DIOS Nov 23, 2018 15:34
[2018-11-23 15:43] VITALS: BP 122/85; PULSE 66; RESP 18
[2018-11-23 20:00] VITALS: BP 122/59; PULSE 63; RESP 18
--- NOTE | 2018-11-24 07:42 | CONS ---
DATE OF ADMISSION: 11/21/2018 DATE OF CONSULTATION: 11/23/2018 TYPE OF CONSULTATION: Cardiology. REASON FOR CONSULTATION: Chest pain, shortness of breath, rule out acute coronary syndrome. REQUESTING PHYSICIAN: Dr. De Dios of the hospitalist service. HISTORY OF PRESENT ILLNESS: Ms. Patton is a very pleasant 83-year-old female with history of hypertension, permanent pacemaker, hepatitis C cirrhosis, thrombocytopenia, who initially had complaints of dyspnea on exertion, chest pain on the day of admission, described as a pressure-like sensation, no associated palpitations, dizziness, abdominal pain, all started after dinner. Initially, upon arrival in the Emergency Department, temperature 97, blood pressure 134/79, pulse 60, respiration 17, satting 100%. The patient's labs revealed a white blood cell count 4.4, hemoglobin 12.4, platelet count 94. Sodium of 141, potassium 3.7, creatinine 0.9, BUN 18. Troponin negative. BNP of 344. Lipase 259. TSH of 7.62. UA negative. The patient underwent a chest x-ray revealing no evidence of acute cardiopulmonary disease, aortic sclerosis, cardiac pacemaker and abdominal pelvic CT that then revealed no inflation mass, lymphadenopathy, cirrhosis and left upper quadrant varices, status post cholecystectomy, hysterectomy, no obstructive uropathy, mild sigmoid colon diverticulosis. The patient's electrocardiogram was in atrial paced rhythm at a rate of 65 with left axis deviation, borderline voltage criteria for left ventricular hypertrophy, no sig STTWA's. The patient subsequently admitted to the floor and since admit to the floor, had negative troponins x3, ruling out for acute myocardial infarction, BNP returned at 344. The patient denies ongoing chest pain, shortness of breath. The patient was monitored on telemetry revealing primarily an atrial paced rhythm. PAST MEDICAL HISTORY: As above in HPI. MEDICATIONS CURRENTLY IN HOSPITAL: 1. Norvasc 10 mg daily. 2. Zestril 20 mg p.o. b.i.d. 3. Tenofovir 30 mg daily. 4. Zofran p.r.n. 5. Tylenol p.r.n. ALLERGIES: 1. ASPIRIN. 2. SEAFOOD. SOCIAL HISTORY: No current tobacco, ETOH or illicit drug use. FAMILY HISTORY: No history of sudden cardiac or early CAD. REVIEW OF SYSTEMS: As above in HPI. CONSTITUTIONAL: No fevers, chills. PULMONARY: No current shortness of breath at this time. CARDIOVASCULAR: Shortness of breath at admit. GASTROINTESTINAL: No vomiting. GENITOURINARY: No hematuria. MUSCULOSKELETAL: Degenerative joint disease. PSYCHIATRIC: The patient denies depression. NEUROLOGIC: No documented history of CVA. ENDOCRINE: No documented Diabetes PHYSICAL EXAMINATION: VITAL SIGNS: Temperature of 97, blood pressure 129/75, pulse 69, respiratory rate 18, satting 100%. GENERAL: Patient is alert, awake, in no acute distress. NECK: JVP approximately 8 to 9 cm of water. CHEST: Fair air movement throughout. HEART: Regular rate and rhythm. Normal S1, S2, I/ systolic murmur, nondisplaced PMI. ABDOMEN: Positive bowel sounds, soft. EXTREMITIES: No significant pitting edema, 1+ pulses bilateral posterior tibial. LABORATORIES: Most recently from today, sodium 140, potassium 3.8, creatinine 0.9, BUN of 25. Troponin negative x3. TSH 5.1, white blood cell count 4.1, hemoglobin 12.4, platelet count 91. IMAGING STUDIES: As above in HPI. No further imaging studies for my review at this time. ECG: As above in HPI. No further electrocardiograms for my review at this time. IMPRESSION: 1. Chest pain, assess for acute coronary syndrome with negative troponins x3 and somewhat vague description, somewhat atypical for cardiac etiology at this time. 2. Shortness of breath, currently improved. No signs of significant volume overload at this time. 3. Abnormal electrocardiogram with nonspecific ST abnormalities. Assess for acute coronary syndrome with negative troponins x3. No ongoing chest pain. 4. Hypertension, somewhat labile but overall under reasonable control. 5. Cirrhosis with varices and portal hypertension. 6. Hepatitis C. 7. Thrombocytopenia. RECOMMENDATIONS: 1. At this time, we would maintain the patient on telemetry monitoring to follow rhythm and rate control closely. 2. We will continue the patient's baseline Norvasc. I sent for blood pressure and will consider initiation of a nonselective beta ingrid for treatment of portal hypertension and therefore give low dose propranolol. 3. We will follow patient's 2D echo that was ordered today for assess ejection fraction, wall motion or any major abnormalities. 4. At this time, the patient's permanent pacemaker shows no signs of dysfunction. Proper pacing. 5. If the patient continues to remain symptom free and the patient's echo reveals no significant abnormalities such as a severely depressed EF or severe aortic stenosis, which is not expected by the patient's exam, the patient is okay for discharge at that point with further outpatient followup. The patient was given my card to obtain further outpatient followup was necessary. She does state that she sees another automation machine builder for her pacemaker, but cannot remember the name at the time. Thank you for allowing me to take part in the care of this patient. I will continue to follow very closely with you with further recommendations will be made as the patient progresses through her inpatient hospital clinical course. Dictated By: CARYN RUVALCABA/SARAH Conf#: [id number] DID#: [id number] CC: DEVANG MCDONALD MD; LE DE DIOS MD;*EndCC* MTDD
== END 2018-11-23 20:24 | disposition home or self-care (01) ==
LOC: E/R 21:40 → TEL 23:56 → INTOOBSV 23:56 → CANRESERV 11-22 13:50
PROVIDERS: ADMIT Internal Medicine; ATTEND Internal Medicine
DX: R06.02 Shortness of breath (principal); B18.2 Chronic viral hepatitis C; K76.6 Portal hypertension; I86.8 Varicose veins of other specified sites; D72.819 Decreased white blood cell count, unspecified; D69.6 Thrombocytopenia, unspecified; I10 Essential (primary) hypertension; Z95.0 Presence of cardiac pacemaker
CPT/HCPCS: 36415; 71045; 74176; 80048; 80053; 80061; 81003; 82550; 82553; 83036; 83690; 83735; 83880; 84100; 84439; 84443; 84481; 84484; 85025; 87086; 93005; 93306; 96374; 96375; 99285; G0378; J1885; J2405; J7040; 99217